=== PATIENT | male | born 1995 | race Caucasian/White ===

== ENCOUNTER 2018-05-16 14:22 | Inpatient (IN) | payer SELFPAY ==
[2018-05-16] VITALS (17 sets, daily range): BP systolic 85–119; BP diastolic 50–78
[~2018-05-16] VITALS: Ht 180.3 cm; Wt 61.2 kg
[2018-05-16] MEDS ORDERED: fentaNYL CITR 100 MCG/2 ML AMP ONE (14:34)
[2018-05-16] MEDS ORDERED: ONDANSETRON 4 MG/2 ML VIAL ONE (14:34)
[2018-05-16] MEDS ORDERED: DIPHTH/TETANUS/ACEL. PERTUSSIS IM ONE (14:35)
[2018-05-16] MEDS ORDERED: fentaNYL CITR 100 MCG/2 ML AMP IVP ONE (14:35)
[2018-05-16] MEDS ORDERED: ONDANSETRON 4 MG/2 ML VIAL IVP ONE ×2 (14:35→17:50)
[2018-05-16] MEDS ORDERED: NS(*) 0.9% 1000 ML BAG 1,000 ML IV ONE ×2 (14:35→20:15)
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
--- NOTE | 2018-05-16 14:49 | RADIOLOGY IMAGING REPORT ---
FACILITY: [facility] PATIENT NAME: Jose Davis : 1995 MR: [id number] V: [id number] EXAM DATE: ORDERING PHYSICIAN: JOSE VILLASENOR TECHNOLOGIST: [place] [facility] [place]: Jose Davis : 1995 Visit/Account:[id number] Date of Sevice: 05/16/2018 PELVIS HISTORY: trauma COMPARISON: None. FINDINGS: Osseous alignment anatomic. No fracture or destructive osseous process. IMPRESSION: No acute bony finding involving the pelvis Report Dictated By: Bobby Arias MD at 05/16/2018 2:45 PM Report E-Signed By: Bobby Arias MD at 05/16/2018 2:46 PM WSN:[email or web address]
--- NOTE | 2018-05-16 14:50 | RADIOLOGY IMAGING REPORT ---
FACILITY: [facility] PATIENT NAME: Nazia Davis : 1995 MR: [id number] V: [id number] EXAM DATE: ORDERING PHYSICIAN: NAZIA VILLASENOR TECHNOLOGIST: Location: [facility] Patient: Nazia Davis : 1995 Visit/Account:[id number] Date of Sevice: 05/16/2018 Exam type: CHEST SINGLE AP History: Trauma Comparison: None. Findings: The lungs are free of acute effusions, infiltrates or edema. Cardiac silhouette is normal in size. The trachea is in midline. There are multiple right-sided rib fractures some of which appear to be d isplaced. No definite pneumothorax seen although this is a supine study IMPRESSION: 1. Multiple right-sided rib fractures. No definite pneumothorax seen although this is a supine stud y limiting evaluation for pneumothorax No evidence of pulmonary consolidation Report Dictated By: Maria Eugenia Burger MD at 05/16/2018 2:45 PM Report E-Signed By: Maria Eugenia Burger MD at 05/16/2018 2:46 PM WSN:BRIVJason
[2018-05-16] MEDS ORDERED: IOPAMIDOL 76% 100 ML INFUS BTL 100 ML ONE (14:51)
[2018-05-16] MEDS ORDERED: NS 0.9% 25 ML BAG 25 ML ONE (14:51)
--- NOTE | 2018-05-16 15:16 | EKG ---
FACILITY: [facility] [place] PATIENT NAME: NAZIA BARTH : [id number] MR: [id number] V: [id number] EXAM DATE: ORDERING PHYSICIAN: NAZIA VILLASENOR TECHNOLOGIST: HERBER Guevara Reason : TRAUMA Blood Pressure : / mmHG Vent. Rate : 110 BPM Atrial Rate : 110 BPM P-R Int : 140 ms QRS Dur : 090 ms QT Int : 276 ms P-R-T Axes : 072 104 043 degrees QTc Int : 373 ms Sinus tachycardia Rightward axis Borderline ECG No previous ECGs available Confirmed by NEERU JIN ([id number]) on 05/16/2018 6:42:49 PM Referred By: JACKLYN Confirmed By:NEERU JIN
[2018-05-16] MEDS ORDERED: KETAMINE HCL 500 MG/5 ML VIAL IVP ONE (15:20)
[2018-05-16] MEDS ORDERED: PROPOFOL EMUL 10MG/ML 20 ML VL IV ONE (15:20)
[2018-05-16] MEDS ORDERED: NALOXONE HCL 0.4 MG/ML VIAL IVP PRN (15:40)
[2018-05-16] MEDS ORDERED: PROMETHAZINE 25 MG/ML 1 ML AMP IVP PRN (15:40)
[2018-05-16] MEDS ORDERED: FLUSH 10 ML SYR IVP PRN (15:40)
[2018-05-16] MEDS ORDERED: HYDROmorphone PCA 6 MG/30 ML IV PRN (15:40)
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
[2018-05-16 15:41] LABS: PLATELET COUNT, AUTOMATED 219 K/uL (150-450)
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
[2018-05-16 15:52] LABS: INR 1.1
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
[2018-05-16] MEDS ORDERED: LORazepam 2 MG/ML VIAL IVP ONE (16:05)
--- NOTE | 2018-05-16 16:11 | RADIOLOGY IMAGING REPORT ---
FACILITY: [facility] PATIENT NAME: Jose Davis : 1995 MR: [id number] V: [id number] EXAM DATE: ORDERING PHYSICIAN: JOSE VILLASENOR TECHNOLOGIST: Location: [facility] Patient: Jose Davis : 1995 Visit/Account:[id number] Date of Sevice: 05/16/2018 2 views right elbow Indication: Post reduction Comparison: None Available Findings: Is anatomic alignment status post reduction. No fracture.Joint effusion IMPRESSION: 1. Anatomic alignment status post reduction. No fracture. Report Dictated By: Bobby Arias MD at 05/16/2018 4:07 PM Report E-Signed By: Bobby Arias MD at 05/16/2018 4:07 PM WSN:[email or web address]
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
[2018-05-16] MEDS ORDERED: PROMETHAZINE 25 MG/ML 1 ML AMP IVP ONE (18:45)
[2018-05-16] MEDS: NS(*) 0.9% 1000 ML BAG 1,000 ML IV PRN (19:45)
[2018-05-16] MEDS: ACETAMINOPHEN(*)1000 MG/100 ML 100 ML IVPB SCH (20:49)
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
[2018-05-17] VITALS (27 sets, daily range): BP systolic 86–135; BP diastolic 50–102; Ht 180.3 cm; Wt 61.2 kg
[2018-05-17] MEDS: ACETAMINOPHEN(*)1000 MG/100 ML 100 ML IVPB SCH (02:35)
[2018-05-17] MEDS: NS(*) 0.9% 1000 ML BAG 1,000 ML IV PRN (05:55)
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
[2018-05-17 06:28] LABS: PLATELET COUNT, AUTOMATED 178 K/uL (150-450)
[2018-05-17] MEDS ORDERED: MAGNESIUM HYDROXIDE* 30ML UDCP PO PRN (08:40)
[2018-05-17] MEDS ORDERED: HYDROmorphone HCL 2 MG/ML SDV IVP PRN (08:40)
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
[2018-05-17] MEDS ORDERED: PANTOPRAZOLE SOD 40 MG IV VIAL IVP SCH (09:00)
[2018-05-17] MEDS: DOCUSATE SODIUM 100 MG CAP PO SCH ×2 (09:12→20:16)
[2018-05-17] MEDS: POLYETHYLENE GLYCOL 17 GM PKT PO SCH (09:12)
[2018-05-17] MEDS: FAMOTIDINE 20 MG TAB PO SCH ×2 (09:12→20:15)
[2018-05-17] MEDS: ONDANSETRON 4 MG/2 ML VIAL IVP PRN ×3 (09:38→20:02)
[2018-05-18] MEDS: ONDANSETRON 4 MG/2 ML VIAL IVP PRN ×3 (00:02→09:53)
[2018-05-18 00:12] VITALS: BP 119/80
[2018-05-18 05:44] VITALS: BP 115/90
[2018-05-18 05:54] LABS: PLATELET COUNT, AUTOMATED 175 K/uL (150-450)
[2018-05-18 08:05] VITALS: BP 118/88
[2018-05-18] MEDS: POLYETHYLENE GLYCOL 17 GM PKT PO SCH (08:18)
[2018-05-18] MEDS ORDERED: PER PO (08:19)
[2018-05-18] MEDS: DOCUSATE SODIUM 100 MG CAP PO SCH (08:19)
[2018-05-18] MEDS ORDERED: ONDA4TAB PO (08:19)
[2018-05-18] MEDS: FAMOTIDINE 20 MG TAB PO SCH (08:19)
[2018-05-18] MEDS ORDERED: DOCU-202 PO (08:19)
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
== END 2018-05-18 11:15 | disposition home or self-care (01) | DRG 964 ==
LOC: ER 14:25 → ICU 18:30 → MED 05-17 11:55
PROVIDERS: ADMIT Surgery; ATTEND Surgery
DX: S36.116A Major laceration of liver, initial encounter (principal); S22.41XA Multiple fractures of ribs, right side, initial encounter for closed fracture; S27.321A Contusion of lung, unilateral, initial encounter; M50.222 Other cervical disc displacement at C5-C6 level; R40.2412 Glasgow coma scale score 13-15, at arrival to emergency department; S53.104A Unspecified dislocation of right ulnohumeral joint, initial encounter; V29.9XXA Motorcycle rider (driver) (passenger) injured in unspecified traffic accident, initial encounter
CPT/HCPCS: 36415; 70450; 71045; 71260; 72125; 72141; 72170; 74177; 80320; 81001; 82040; 82247; 82248; 82310; 82374; 82435; 82565; 82947; 83690; 84075; 84132; 84155; 84295; 84450; 84460; 84520; 85014; 85018; 85025; 85610; 86850; 86900; 86901; 90715; 93005; 99291; C1758; J0131; J1170; J2060; J2405; J2550; J2704; J3010; J7030; L3982; Q9967

== ENCOUNTER → 2018-05-16 | Outpatient (CLI) | payer SELFPAY ==
[~2018-05-16] MED LIST: DOCU-202 PO; ONDA4TAB PO; PER PO
[2018-05-17 11:43] VITALS: BMI 18.8
== END ==
LOC: AMB 12:55
PROVIDERS: ATTEND Nurse Practitioner
DX: M79.601 Pain in right arm (principal); M21.921 Unspecified acquired deformity of right upper arm; R10.9 Unspecified abdominal pain; V28.4XXA Motorcycle driver injured in noncollision transport accident in traffic accident, initial encounter
CPT/HCPCS: A0425; A0433